=== PATIENT | male | born 1950 | race Caucasian/White ===

== ENCOUNTER 2016-12-25 05:48 | Day surgery (SDC) | payer BC ==
[~2016-12-25] VITALS: Ht 172.7 cm; Wt 88.2 kg
--- NOTE | ~2016-12-25 | DS ---
PATIENT'S NAME: AILYN WEST UNION Abel [facility] AGE: 66 Y [address] ROOM: [address] [place], [place] [address] LOCATION: [facility] ADMIT DATE: 12/25/2016 Discharge Summary DISCHARGE DATE: 12/26/2016 FAMILY PHYSICIAN: Zack He MD ATTENDING PHYSICIAN: Johnson Lawler ADMISSION MAIN DIAGNOSIS: C4-C5 and C5-C6 severe spinal stenosis with radiculopathy. DISCHARGE MAIN DIAGNOSIS: C4-C5 and C5-C6 severe spinal stenosis with radiculopathy. PROCEDURES DURING ADMISSION: C4-C5 and C5-C6 anterior cervical diskectomy and instrumented arthrodesis, and bilateral C5, bilateral C6 foraminotomy and decompression. COMPLICATIONS DURING ADMISSION: None. FOLLOW-UP APPOINTMENTS AND DISCHARGE INSTRUCTIONS: 1. Dr. Johnson Lawler's office on 01/07/2017 for staple removal. 2. Soft neck collar when mobilizing. 3. Call my office for any concerns. 4. No heavy lifting, and no neck twisting. 5. Keep the dressing on and dry until January 03 then take off and keep the wound open to air. MEDICATIONS ON DISCHARGE: 1. Resume all pre-admission medications. 2. Dexamethasone 3 mg p.o. b.i.d. for 24 hours, then 2 mg p.o. b.i.d. for 2 days, then 2 mg p.o. once daily for 3 days, and then stop. 3. Flexeril 10 mg p.o. every 8 hours p.r.n. 4. Tramadol 50 to 100 mg p.o. every 6 hours p.r.n. HOSPITAL COURSE: The above patient was admitted electively to the hospital for the above-mentioned surgery. He underwent an unremarkable operation. Postoperatively, he did very well. His severe left arm pain completely resolved after the surgery. He had no new neurological deficits. He mobilized well independently. He tolerated the oral intake very well. On the day of discharge, he was examined. He remained neurologically intact. He also had postoperative cervical spine x-ray and that showed satisfactory decompression and placement of the hardware. His wound was healing very well. I reviewed the discharge instructions with the patient and his and based on that, he was sent home. PATIENT'S NAME: AILYN [facility] AGE: 66 Y [address] ROOM: [facility] [place], [place] [address] LOCATION: [facility] ADMIT DATE: 12/25/2016 Discharge Summary DISCHARGE DATE: 12/26/2016 FAMILY PHYSICIAN: Zack He MD ATTENDING PHYSICIAN: Johnson Lawler MD GRAZYNA MCMULLEN/modl /[id number] CC: Zack He MD d: 12/26/16 1215 t: 12/26/16 1413, DISCHARGE SUMMARY
--- NOTE | ~2016-12-25 | OR ---
PATIENT'S NAME: DUNG ROBERTSON [facility] AGE: 66 Y [address] ROOM: [place] [address] LOCATION: [facility] ADMIT DATE: 12/25/2016 OR/Procedure Report DISCHARGE DATE: FAMILY PHYSICIAN: JANETTE HE MD ATTENDING PHYSICIAN: JOHNSON LAWLER SURGEON: Johnson Lawler MD TEACHER OF THE DEAF/HARD OF HEARING: DATE OF PROCEDURE: 12/25/2016 ANESTHESIOLOGIST: Rosales Gomez MD ANESTHESIA: General. COMPLICATIONS: None. ESTIMATED BLOOD LOSS: Minimal. PREOPERATIVE DIAGNOSES: 1. C4-C5 severe spinal stenosis with radiculopathy. 2. C5-C6 severe spinal stenosis with severe radiculopathy. POSTOPERATIVE DIAGNOSES: 1. C4-C5 severe spinal stenosis with radiculopathy. 2. C5-C6 severe spinal stenosis with severe radiculopathy. PROCEDURES PERFORMED: 1. C4-C5 anterior cervical diskectomy and decompression of the neural elements. 2. C5-C6 anterior cervical diskectomy and decompression of the neural elements. 3. Bilateral C5, bilateral C6 foraminotomy and decompression of the neural elements. 4. C4-C5 anterior instrumented arthrodesis. 5. C5-C6 anterior instrumented arthrodesis. 6. Insertion of a cortical cancellous allograft spacer into the C4-C5, C5-C6 disk spaces for arthrodesis (system used is Medtronic Cornerstone system). 7. Insertion of two anterior cervical titanium plates across C5-C6, C6-C7 disk spaces (system used is Medtronic Brookford Elite system). CLINICAL HISTORY: The above patient was diagnosed clinically and on imaging to have the above-mentioned diagnoses. I recommended the above-mentioned surgery to the patient to try to decompress the neural elements and control his symptoms. The patient was interested in proceeding with surgery so he was brought in for the operation. PATIENT'S NAME: DUNG ROBERTSON [facility] AGE: 66 Y [address] ROOM: [place] [address] LOCATION: [facility] ADMIT DATE: 12/25/2016 OR/Procedure Report DISCHARGE DATE: FAMILY PHYSICIAN: JANETTE HE MD ATTENDING PHYSICIAN: JOHNSON LAWLER DESCRIPTION OF PROCEDURE: The patient was seen in the preoperative care unit and the correct side was marked. Then, he was transferred to the main operating theater, was given general anesthetic, and underwent endotracheal intubation without complications. Preoperative antibiotics, and steroids were given. Calf compressors were used throughout the procedure. The patient was then positioned supine on the table, and all his joints and bony prominences were securely padded. The patient's neck was held in neutral and mild extension on a gel-padded beanbag. The shoulders were taped away to facilitate intraoperative fluoroscopy. I then marked a transverse incision on the right side of the neck at C5 level. The surgical site was then prepped and draped as per usual. The proposed skin incision was infiltrated with 0.25% Marcaine with epinephrine. Skin was sharply opened down to the subplatysmal plane, then subplatysmal dissection was carried out both cranially and caudally. Then, I dissected through the middle cervical fascia down to the prevertebral fascia which was coagulated and incised to expose the anterior surface of the spine. As expected, there were very large anterior projecting osteophytes at C4-C5, and C5-C6 disk spaces, and those osteophytes were removed using Leksell rongeur. I then elevated the longus colli muscles bilaterally and self- retaining retractor was inserted. The correct level was then confirmed using intraoperative fluoroscopy. I started by doing the diskectomy at the C5-C6 level. Distracting pins were inserted into C5 and C6 vertebrae, and unfortunately, I could not achieve any distraction given the severity of the stenosis. Given that, I proceeded to perform the diskectomy using a high-speed Midas Zach drill. That part of the operation was substantially difficult and required more time and caution to perform in order to decompress the neural elements and prevent neurological decline. I managed to get down to the posterior aspect of the C5-C6 disk and as expected, there was severe stenosis especially on the left side. The posterior projecting osteophytes were then removed using Kerrison rongeur. The spinal cord was completely decompressed. I then performed bilateral C6 foraminotomy without any complications. I had no complications during that. Then, I proceeded to perform the diskectomy at C4-C5 level. I did that in the same fashion as C5-C6. Again, there was severe stenosis, and limited distraction was achieved. That part of the operation was also difficult and required more time to perform. Again, I got down to the posterior aspect of the disk and the posterior projecting osteophytes were removed using Kerrison rongeur. The thecal sac was decompressed. I also performed bilateral C5 foraminotomy and the neural elements were decompressed. I had no complications. Then, I proceeded to insert structural cortical cancellous allograft spacers. PATIENT'S NAME: DUNG ROBERTSON [facility] AGE: 66 Y [address] ROOM: [address] [address] LOCATION: [facility] ADMIT DATE: 12/25/2016 OR/Procedure Report DISCHARGE DATE: FAMILY PHYSICIAN: JANETTE HE MD ATTENDING PHYSICIAN: JOHNSON LAWLER Those were inserted into C4-C5 and C5-C6 disk spaces. Then, two anterior cervical titanium plates were inserted across C4-C5 and C5-C6 disks and those were anchored to the bone with 15 x 4 mm screws. Plates were finally locked. Final x-ray was performed and that showed satisfactory placement of the hardware and no complications. Then, I proceeded to hemostasis and closure. The wound was copiously irrigated with bacitracin-containing irrigation. Hemostasis was achieved. Then, the wound was closed in layers with 2-0 Vicryl to the platysma, 2-0 Vicryl to the subcutaneous tissue, and mary ann for the skin. Sterile dressing was applied. At the end of the operation, the instrument and sponge count were correct. The patient tolerated the operation without complications. This case was substantially difficult given the severity of the stenosis and the degenerative joint disease. This operation required more time and caution to perform in order to avoid neurological decline and formally decompress the neural elements. JOHNSON LAWLER MD AB/modl /[id number] CC: Janette He MD d: 12/25/16 1411 t: 12/25/16 1523, OPERATIVE SUMMARY
[~2016-12-25 05:48] MED LIST: CALCIUM 600+D31 EACH PO; CO Q-10100 MG PO; DEXILANT60 MG PO; MULTIVITAMINS1 EAC2 PO; TYLENOL EXTRA500 MG PO; URINOZINC PROS1 EACH PO
--- NOTE | 2016-12-25 16:04 | NUR ---
Significant Event: CAme up from PACU at 1215. AOx3. VSS. CSM WNL> Dressing to anterior neck has small shadow drainage. Soft collar on when sitting and ambulating. Flexeril given in PACU at 1052. Oxycodone 5mg tab given at 1530. Up to chair with PT. SBA up to bathroom. Has voided x1. Follow up:
--- NOTE | 2016-12-26 04:39 | NUR ---
Significant Event: A/O X 3. IV SALINE LOCK INTACT. TAKING FLUIDS. NO NAUSEA. C/O HURTS TO SWOLLOW, NO PROBLEM SWOLLOWING. ANTERIOR NECK DRSGS INTACT WITH SMALL AREA BLOODY DRAINAGE. PATIENT CAN HAVE SOFT COLLOR OFF IN BED, WHEN SITTING IN CHAIR OR AMBULATING IS TO WEAR SOFT COLLOR. HOB ELEVATED FOR COMFORT. SAT UP IN CHAIR EARLIER, UP IN ROOM, GOOD TOLERANCE. NOT MUCH APPETITE. TAKES PUDDING. PAIN RATING 7-5-4/10. HAD ROXYCODONE 5MG TAB LAST AT 0215 FOR PAIN RATE 6, AT 0315 PAIN RATE 4, MORE TOLERABLE. HAD FLEXERIL 10MG TAB AT 2305. PATIENT DENIES NUMBNESS OR TINGLING TO UPPER OR LOWER EXTREMITIES. GOOD STRENGTH EXTREMITIES. BILATERAL CALF PNEUMATICS ON. STAYED THE NOC AT BEDSIDE. INCENTIVE USAGE 1999. VOIDED X 3, TOTAL 800ML. PATIENT DENIES PASSING FLATUS. Follow up:
--- NOTE | 2016-12-26 06:45 | NUR ---
[id number] Supervised [facility] Chief Unit Forester.
--- NOTE | 2016-12-26 09:55 | NUR ---
Introduced self/role to patient and his Shagufta. They live in [place]. Could not think of any unmet needs or DME that would be needed. Added my name to his marker board, plan is for discharge home today.
[2016-12-26] MEDS ORDERED: DECADRON1 MG PO ×3 (10:03→10:10)
[2016-12-26] MEDS ORDERED: FLEXERIL10 MG PO (10:11)
[2016-12-26] MEDS ORDERED: ULTRAM50 MG PO (10:12)
--- NOTE | 2016-12-26 12:47 | NUR ---
patient dimsissed to home. criteria met to meet goals. rx slip, return appt card, dismissal teaching, new meds instructions, soft collar use, showering with shower guards, wound care, all reviewed with patient and . patient verbalizes understanding of instrucitons. to front door with , transport and son.
== END 2016-12-26 11:27 | disposition disaster alternative care site (69) ==
LOC: GSDC 05:48 → G3N 05:48 → GSDC 16:00
PROC: 0RG20K0 Fusion of 2 or more Cervical Vertebral Joints with Nonautologous Tissue Substitute, Anterior Approach, Anterior Column, Open Approach (ICD-10-PCS; principal; 2016-12-25)
PROC: 0RG20A0 Fusion of 2 or more Cervical Vertebral Joints with Interbody Fusion Device, Anterior Approach, Anterior Column, Open Approach (ICD-10-PCS; 2016-12-25)
DX: M48.02 Spinal stenosis, cervical region (principal); M54.12 Radiculopathy, cervical region; Z88.8 Allergy status to other drugs, medicaments and biological substances; Z79.899 Other long term (current) drug therapy; Z98.890 Other specified postprocedural states
CPT/HCPCS: C1713; J0690; J1030; J1100; J1170; J2001; J2405; J3010; J7120